=== PATIENT | female | born 1935 | race Caucasian/White ===

== ENCOUNTER 2016-06-18 10:40 | Emergency (ER) | payer OTHER ==
[2016-06-18 10:50] VITALS: BP 136/72; PULSE 81; RESP 16; TEMP 98.2; O2SAT 92
[2016-06-18] MEDS ORDERED: HYDROCODONE/APAP 5/325 TAB ONE (11:40)
[2016-06-18] MEDS ORDERED: ONDANSETRON DISINTEGRATING 4 MG TAB ONE (11:40)
[2016-06-18] MEDS ORDERED: ONDANSETRON DISINTEGRATING 4 MG TAB PO ONE (11:47)
[2016-06-18] MEDS ORDERED: HYDROCODONE/APAP 5/325 TAB PO ONE (11:48)
--- NOTE | 2016-06-18 12:48 | EDPHY ---
H & P Stated Complaint: tripped and fell last evening/r knee and ankle pain/swelling HPI/ROS: Chief complaint: Trip and fall with right knee pain History of present illness: This is a 80-year-old female who presents to the emergency department after sustaining a trip and fall injuring her right knee last night. Patient states since the fall she has had discomfort in her knee. It makes it hard to walk on it. She further reports some soreness in her ankle. She denies other associated signs or symptoms including no open wounds. No paresthesias or abnormal coolness in the leg. No report of trauma to other parts of the body. - Personal History Current Tetanus/Diphtheria Vaccine: Yes - Medical/Surgical History Hx Asthma: No Hx Chronic Respiratory Disease: No Hx Diabetes: No Hx Cardiac Disease: No Hx Renal Disease: No Hx Cirrhosis: No Hx Alcoholism: No Hx HIV/AIDS: No Hx Splenectomy or Spleen Trauma: No Other PMH: htn/hypothyroid - Social History Smoking Status: Former smoker - Physical Exam Exam: General: Alert, nontoxic Skin: No lesions consistent with trauma to the right leg. Musculoskeletal: Mild tenderness medial aspect of the right knee. She is flexing and extending it well. Mild tenderness to the lateral malleolus. She is moving the ankle in all carlson well. The rest of the right lower extremity is nontender. Vascular: DP and PT pulses 2+. Neurologic: Sensation intact throughout the right leg. Constitutional: Initial Vital Signs Temperature (C) 36.8 C 06/18/16 10:47 Heart Rate 81 06/18/16 10:47 Respiratory Rate 16 06/18/16 10:47 Blood Pressure 136/72 H 06/18/16 10:47 O2 Sat (%) 92 06/18/16 10:47 O2 Delivery Mode Room Air Allergies/Adverse Reactions: Penicillins Allergy (Verified 06/18/16 10:45) Home Medications: Medication Instructions Recorded CALCIUM 06/18/16 Metoprolol Succinate 06/18/16 Prednisone 06/18/16 Synthroid 06/18/16 Medical Decision Making - Diagnostics Imaging Results: Imaging Impressions Ankle X-Ray 06/18/16 10:58 Impression: Moderate soft tissue swelling over the lateral malleolus indicating the soft tissue injury. No evidence for fracture. Knee X-Ray 06/18/16 10:58 Impression: No evidence for acute fracture. Moderate suprapatellar joint effusion. Chondrocalcinosis. Imaging: Discussed imaging studies w/ call center assistant Radiologist, I viewed and interpreted images myself ED Course/Re-evaluation: Patient seen under the supervision of my secondary supervising physician Dr. Ozzy Collado. Patient presents to the emergency department for a right leg injury primarily to the knee but some discomfort in the ankle as well. The leg is neurovascularly intact. X-rays are negative for bony fractures. An Placido wrap is placed on the knee and ankle. She is given crutches. She is flying home tomorrow to [place]. She is asked to follow up with an orthopedic doctor when she returns home. Return precautions are given. Patient voiced understanding and agreement with plan. Differential Diagnosis: Included but not limited to contusion, sprain or strain, bony fracture, joint dislocation - Data Points Medications Given: Discontinued Medications Hydrocodone Bitart/Acetaminophen ([place] 5/325) 1 tab PO EDNOW ONE Stop: 06/18/16 11:49 Last Admin: 06/18/16 11:48 Dose: 1 tab Ondansetron HCl (Zofran Odt) 4 mg PO EDNOW ONE Stop: 06/18/16 11:48 Last Admin: 06/18/16 11:48 Dose: 4 mg Departure - Departure Disposition: Home, Routine, Self-Care Clinical Impression: Knee injury Qualifiers: Encounter type: initial encounter Laterality: right Qualified Code(s): S89.91XA - Unspecified injury of right lower leg, initial encounter Ankle sprain Qualifiers: Encounter type: initial encounter Involved ligament of ankle: unspecified ligament Laterality: right Qualified Code(s): S93.401A - Sprain of unspecified ligament of right ankle, initial encounter Condition: Good Instructions: Ankle Sprain (ED), Knee Sprain (ED) Additional Instructions: Follow-up with an orthopedic doctor when you return home If symptoms worsen or new symptoms develop return to the emergency room for recheck Referrals: SHELLIE DWYER [Other] - As per Instructions
== END 2016-06-18 13:12 | disposition home or self-care (01) ==
DX: S89.91XA Unspecified injury of right lower leg, initial encounter (principal); S93.401A Sprain of unspecified ligament of right ankle, initial encounter; I10 Essential (primary) hypertension; Z87.891 Personal history of nicotine dependence; W01.0XXA Fall on same level from slipping, tripping and stumbling without subsequent striking against object, initial encounter; Y93.89 Activity, other specified